=== PATIENT | female | born 1970 | race Caucasian/White ===

== ENCOUNTER 2018-07-13 07:32 | Emergency (ER) | payer MEDICARE, MEDICAID ==
[2018-07-13 07:54] VITALS: BP 132/82
[2018-07-13] MEDS ORDERED: Sodium Chloride 0.9% 10 ML Syringe FLUSH PRN ×2 (08:12→08:31)
[2018-07-13] MEDS ORDERED: Lactated Ringers 1,000 ML IV SCH (08:15)
--- NOTE | 2018-07-13 08:20 | EDM.PDOC ---
ED HPI GENERAL MEDICAL PROBLEM - General Chief Complaint: Gastrointestinal Problem Stated Complaint: PAIN IN LOWER ABDOMEN Time Seen by Provider: 07/13/18 08:07 Source of Information: Reports: Patient, Old Records, RN Notes Reviewed History Limitations: Reports: No Limitations - History of Present Illness INITIAL COMMENTS - FREE TEXT/NARRATIVE: 47-year-old female presents to the emergency department day complaint of abdominal pain, she states the abdominal pain is developed over the last 12 hours initially she felt it may been constipation had a normal bowel movement this morning pain still persists is predominantly in her left lower quadrant. She does have a history of 2 as well as cholecystectomy has had a colonoscopy about 10 years ago she states was unremarkable. She denies any fevers shortness of breath or chest pain is experiencing nausea no vomiting Left Lower Abdomen Pain Score (Numeric/FACES): 4 - Related Data Allergies Allergy/AdvReac Type Severity Reaction Status Date / Time No Known Allergies Allergy Verified 07/13/18 07:48 Home Meds: Home Meds Cholecalciferol (Vitamin D3) [Vitamin D3] 1,000 units PO DAILY 01/13/13 [History ] Montelukast [Singulair] 10 mg PO DAILY 01/13/13 [History] Lisinopril 40 mg PO DAILY 05/30/13 [History] Albuterol Sulfate [Proair Hfa] 2 inh INH QID PRN 07/03/13 [History] Albuterol [Proventil Neb Soln] 2 inh NEB Q2HR PRN 07/03/13 [History] Bupropion Hcl 150 mg PO BEDTIME 11/28/14 [History] Calcium 1 tab PO DAILY 11/28/14 [History] Cyclobenzaprine Hcl 10 mg PO ASDIRECTED PRN 11/28/14 [History] Ibuprofen 600 mg PO ASDIRECTED 11/28/14 [History] Low-Ogestrel 1 tab PO DAILY 11/28/14 [History] Multivitamin 1 tab PO DAILY 11/28/14 [History] Ranitidine Hcl 150 mg PO BID 11/28/14 [History] Amoxicillin/Potassium Clav [Augmentin 875-125 Tablet] 1 each PO BID #20 tablet 07/13/18 [Rx] Dextroamphetamine/Amphetamine [Adderall 10 mg Tablet] 10 mg PO BID 07/13/18 [ History] Docusate Sodium [Colace] 50 mg PO BID 07/13/18 [History] Fish Oil/[place]-3 Fatty Acids [Fish Oil 1,000 MG] 1 tab PO BID 07/13/18 [History] Hydrocodone/Acetaminophen [Hydrocodon-Acetaminophen 5-325] 1 each PO TID PRN # 10 tablet 07/13/18 [Rx] buPROPion HCl [Wellbutrin Xl] 150 mg PO DAILY 07/13/18 [History] Past Medical History HEENT History: Reports: Impaired Vision Cardiovascular History: Reports: High Cholesterol, Hypertension Respiratory History: Reports: Asthma, Sleep Apnea Other Respiratory History: has cpap Gastrointestinal History: Reports: Chronic Constipation [employer] OPERATOR History: Reports: Musculoskeletal History: Reports: Back Pain, Chronic Neurological History: Reports: Concussion, Head Trauma, Migraines Psychiatric History: Reports: Depression Endocrine/Metabolic History: Reports: Obesity/BMI 30+ Hematologic History: Reports: Blood Transfusion(s) - Infectious Disease History Infectious Disease History: Reports: Chicken Pox - Past Surgical History Head Surgeries/Procedures: Reports: None HEENT Surgical History: Reports: None Cardiovascular Surgical History: Reports: None Respiratory Surgical History: Reports: None GI Surgical History: Reports: Cholecystectomy, Colonoscopy Female Surgical History: Reports: Section Endocrine Surgical History: Reports: None Neurological Surgical History: Reports: None Musculoskeletal Surgical History: Reports: None Social & Family History - Tobacco Use Smoking Status *Q: Never Smoker Second Hand Smoke Exposure: No - Caffeine Use Caffeine Use: Reports: Coffee - Recreational Drug Use Recreational Drug Use: Yes Drug Use in Last 12 Months: Yes Recreational Drug Type: Reports: Marijuana/Hashish Recreational Drug Use Frequency: Rarely - Living Situation & Occupation Occupation: Employed ED ROS GENERAL - Review of Systems Review Of Systems: See Below Constitutional: Denies: Fever, Chills HEENT: Reports: No Symptoms Respiratory: Reports: No Symptoms Cardiovascular: Reports: No Symptoms GI/Abdominal: Reports: Abdominal Pain, Flatus, Nausea. Denies: Constipation, Diarrhea, Vomiting : Reports: No Symptoms Musculoskeletal: Reports: No Symptoms Skin: Reports: No Symptoms Neurological: Reports: No Symptoms ED EXAM, GI/ABD - Physical Exam Exam: See Below Exam Limited By: No Limitations General Appearance: Alert, WD/WN, No Apparent Distress Respiratory/Chest: No Respiratory Distress, Lungs Clear, Normal Breath Sounds, No Accessory Muscle Use Cardiovascular: Regular Rate, Rhythm, No Murmur GI/Abdominal Exam: Normal Bowel Sounds, Soft, No Distention, Tender (Left lower quadrant) Course - Vital Signs Last Recorded V/S: Last Vital Signs Temp 96.0 F 07/13/18 07:55 Pulse 80 07/13/18 07:55 Resp 16 07/13/18 07:55 BP 132/82 07/13/18 07:55 Pulse Ox 98 07/13/18 07:55 - Orders/Labs/Meds Orders: Active Orders 24 hr Category Date Time Status Peripheral IV Care [RC] . DIRECTED Care 07/13/18 08:12 Active Iopamidol [Isovue-300 (61%)] Med 07/13/18 08:45 Active 136 ml IV . DIRECTED Lactated Ringers [Ringers, Lactated] 1,000 ml Med 07/13/18 08:15 Active IV ASDIRECTED Sodium Chloride 0.9% [Saline Flush] Med 07/13/18 08:12 Active 10 ml FLUSH ASDIRECTED PRN Sodium Chloride 0.9% [Saline Flush] Med 07/13/18 08:31 Active 10 ml FLUSH ONETIME PRN Peripheral IV Insertion Adult [OM.PC] Urgent Oth 07/13/18 08:12 Ordered Medication Orders Lactated Ringer's (Ringers, Lactated) 1,000 mls @ 500 mls/hr IV ASDIRECTED [facility] Last Admin: 07/13/18 08:34 Dose: 500 mls/hr Iopamidol (Isovue-300 (61%)) 136 ml IV . DIRECTED [facility] Last Admin: 07/13/18 08:48 Dose: 136 ml Sodium Chloride (Saline Flush) 10 ml FLUSH ASDIRECTED PRN PRN Reason: Keep Vein Open Last Admin: 07/13/18 08:33 Dose: 10 ml Sodium Chloride (Saline Flush) 10 ml FLUSH ONETIME PRN PRN Reason: PER RADIOLOGY PROTOCOL Last Admin: 07/13/18 08:48 Dose: 10 ml Labs: Laboratory Tests 07/13/18 07/13/18 07/13/18 Range/Units 08:32 08:32 08:32 WBC 13.8 H (4.5-11.0) K/uL RBC 4.31 (3.30-5.50) M/uL Hgb 13.4 (12.0-15.0) g/dL Hct 40.5 (36.0-48.0) % MCV 94 (80-98) fL MCH 31 (27-31) pg MCHC 33 (32-36) % Plt Count 275 (150-400) K/uL Neut % (Auto) 89 H (36-66) % Lymph % (Auto) 7 L (24-44) % [place] % (Auto) 3 (2-6) % Eos % (Auto) 1 L (2-4) % Baso % (Auto) 0 (0-1) % Sodium (140-148) mmol/L Potassium (3.6-5.2) mmol/L Chloride (100-108) mmol/L Carbon Dioxide (21-32) mmol/L Anion Gap (5.0-14.0) mmol/L BUN (7-18) mg/dL Creatinine (0.6-1.0) mg/dL Est Cr Clr Drug Dosing mL/min Estimated GFR (MDRD) (>60) Glucose (74-106) mg/dL Lactic Acid (0.4-2.0) mmol/L Calcium (8.5-10.1) mg/dL Total Bilirubin (0.2-1.0) mg/dL AST (15-37) U/L ALT (12-78) U/L Alkaline Phosphatase (46-116) U/L Total Protein (6.4-8.2) g/dL Albumin (3.4-5.0) g/dL Globulin (2.3-3.5) g/dL Albumin/Globulin Ratio (1.2-2.2) Lipase (73-393) U/L Urine Color Yellow Urine Appearance Clear Urine pH 5.0 (4.5-8.0) Ur Specific [place] 1.015 (1.008-1.030) Urine Protein Negative (NEGATIVE) mg/dL Urine Glucose (UA) Negative (NEGATIVE) mg/dL Urine Ketones 15 H (NEGATIVE) mg/dL Urine Occult Blood Large (NEGATIVE) Urine Nitrite Negative (NEGATIVE) Urine Bilirubin Negative (NEGATIVE) Urine Urobilinogen Normal (NORMAL) mg/dL Ur Leukocyte Esterase Negative (NEGATIVE) Urine RBC 0-5 (0-5) Urine WBC Not seen (0-5) Ur Epithelial Cells Few Amorphous Sediment Not seen Urine Bacteria Moderate Urine Mucus Not seen Urine HCG, Qual Negative 07/13/18 07/13/18 Range/Units 08:32 08:32 WBC (4.5-11.0) K/uL RBC (3.30-5.50) M/uL Hgb (12.0-15.0) g/dL Hct (36.0-48.0) % MCV (80-98) fL MCH (27-31) pg MCHC (32-36) % Plt Count (150-400) K/uL Neut % (Auto) (36-66) % Lymph % (Auto) (24-44) % [place] % (Auto) (2-6) % Eos % (Auto) (2-4) % Baso % (Auto) (0-1) % Sodium 137 L (140-148) mmol/L Potassium 3.8 (3.6-5.2) mmol/L Chloride 102 (100-108) mmol/L Carbon Dioxide 25 (21-32) mmol/L Anion Gap 13.8 (5.0-14.0) mmol/L BUN 12 (7-18) mg/dL Creatinine 0.8 (0.6-1.0) mg/dL Est Cr Clr Drug Dosing 81.38 mL/min Estimated GFR (MDRD) > 60 (>60) Glucose 101 (74-106) mg/dL Lactic Acid 0.9 (0.4-2.0) mmol/L Calcium 8.8 (8.5-10.1) mg/dL Total Bilirubin 1.0 D (0.2-1.0) mg/dL AST 15 (15-37) U/L ALT 34 (12-78) U/L Alkaline Phosphatase 52 (46-116) U/L Total Protein 7.2 (6.4-8.2) g/dL Albumin 3.6 (3.4-5.0) g/dL Globulin 3.6 H (2.3-3.5) g/dL Albumin/Globulin Ratio 1.0 L (1.2-2.2) Lipase 134 (73-393) U/L Urine Color Urine Appearance Urine pH (4.5-8.0) Ur Specific [place] (1.008-1.030) Urine Protein (NEGATIVE) mg/dL Urine Glucose (UA) (NEGATIVE) mg/dL Urine Ketones (NEGATIVE) mg/dL Urine Occult Blood (NEGATIVE) Urine Nitrite (NEGATIVE) Urine Bilirubin (NEGATIVE) Urine Urobilinogen (NORMAL) mg/dL Ur Leukocyte Esterase (NEGATIVE) Urine RBC (0-5) Urine WBC (0-5) Ur Epithelial Cells Amorphous Sediment Urine Bacteria Urine Mucus Urine HCG, Qual Meds: Medications Generic Name Dose Route Start Last Admin Trade Name Leydi PRN Reason Stop Dose Admin Lactated Ringer's 1,000 mls @ 500 mls/hr 07/13/18 08:15 07/13/18 08:34 Ringers, Lactated IV 500 mls/hr ASDIRECTED SORAIDA Administration Iopamidol 136 ml 07/13/18 08:45 07/13/18 08:48 Isovue-300 (61%) IV 136 ml . DIRECTED SORAIDA Administration Sodium Chloride 10 ml 07/13/18 08:12 07/13/18 08:33 Saline Flush FLUSH 10 ml ASDIRECTED PRN Administration Keep Vein Open Sodium Chloride 10 ml 07/13/18 08:31 07/13/18 08:48 Saline Flush FLUSH 10 ml ONETIME PRN Administration PER RADIOLOGY PROTOCOL Discontinued Medications Generic Name Dose Route Start Last Admin Trade Name Leydi PRN Reason Stop Dose Admin Sodium Chloride 81 mls @ 3 mls/sec 07/13/18 08:31 07/13/18 08:47 Normal Saline IV 07/13/18 08:32 3.5 mls/sec ONETIME ONE Administration Ondansetron HCl 4 mg 07/13/18 09:00 07/13/18 09:04 Zofran IVPUSH 07/13/18 09:01 4 mg ONETIME ONE Administration Departure - Departure Time of Disposition: 09:40 Disposition: Home, Self-Care 01 Condition: Fair Clinical Impression: Sigmoid diverticulitis - Discharge Information Prescriptions: Amoxicillin/Potassium Clav [Augmentin 875-125 Tablet] 1 each PO BID #20 tablet Hydrocodone/Acetaminophen [Hydrocodon-Acetaminophen 5-325] 1 each PO TID PRN # 10 tablet PRN Reason: Pain Referrals: PCP,None [Primary Care Provider] - Forms: ED Department Discharge Additional Instructions: Take full course of antibiotics, use ibuprofen for baseline pain control use hydrocodone for breakthrough pain, please follow-up with your primary care provider in the next 3-5 days for reevaluation also discussed the possibility of colonoscopy in the future. Your medications have been faxed to [facility] - My Orders Last 24 Hours: My Active Orders 07/13/18 08:12 Peripheral IV Care [RC] . DIRECTED Sodium Chloride 0.9% [Saline Flush] 10 ml FLUSH ASDIRECTED PRN Peripheral IV Insertion Adult [OM.PC] Urgent 07/13/18 08:15 Lactated Ringers [Ringers, Lactated] 1,000 ml IV ASDIRECTED 07/13/18 08:31 Sodium Chloride 0.9% [Saline Flush] 10 ml FLUSH ONETIME PRN 07/13/18 08:45 Iopamidol [Isovue-300 (61%)] 136 ml IV . DIRECTED - Assessment/Plan Last 24 Hours: My Active Orders 07/13/18 08:12 Peripheral IV Care [RC] . DIRECTED Sodium Chloride 0.9% [Saline Flush] 10 ml FLUSH ASDIRECTED PRN Peripheral IV Insertion Adult [OM.PC] Urgent 07/13/18 08:15 Lactated Ringers [Ringers, Lactated] 1,000 ml IV ASDIRECTED 07/13/18 08:31 Sodium Chloride 0.9% [Saline Flush] 10 ml FLUSH ONETIME PRN 07/13/18 08:45 Iopamidol [Isovue-300 (61%)] 136 ml IV . DIRECTED Plan: Assessment Acuity = acute Site and laterality = diverticulitis sigmoid Etiology = unknown etiology Manifestations = abdominal pain, nausea Location of injury = Home Lab values = WBC elevated 13.8 consistent leukocytosis, CT scan consistent with sigmoid diverticulitis Plan [I did review lab work and CT scan results with her prescription sent to [facility] for Augmentin 875 by mouth twice a day 10 days in combination with hydrocodone 5/325 one tab by mouth 3 times a day when necessary total #10 she' ll follow-up with her primary care in the next 3-5 days for reevaluation also discussed with her the possibility of colonoscopy in the future This note was dictated using [employer] voice recognition software please call with any questions on syntax or grammar.
[2018-07-13] MEDS ORDERED: Iopamidol 612 MG/ML 150 ML Bottle IV SCH (08:45)
[2018-07-13] MEDS ORDERED: Ondansetron 4 MG/2 ML SDV IVPUSH ONE (09:00)
--- NOTE | 2018-07-13 09:15 | CRLCT ---
INDICATION: 47 year-old female. Left lower quadrant abdominal pelvic pain. TECHNIQUE: Contrast-enhanced abdominal pelvic CT. 136 cc nonionic Isovue-300 administered. COMPARISON: None. FINDINGS: There are CT changes compatible with sigmoid diverticulitis within the left lower quadrant. Specifically the proximal and mid sigmoid colon appear to be thick-walled and edematous with pericolonic fat stranding and a few scattered diverticula particularly within the left lower quadrant, image 105 series 2. Minimal free pelvic fluid which may be reactive in nature. No abscess formation, free air, or bowel obstruction. Clear included lung bases. Tiny esophageal hiatal hernia. The liver is negative for masses or biliary ductal dilatation. Surgically absent gallbladder. No splenomegaly. Normal-appearing pancreas, adrenal glands, and kidneys. Normal caliber abdominal aorta and iliac arteries. Normal inferior vena cava. Normal appendix. The uterus, urinary bladder, and both ovaries are within normal limits. Degenerative disc disease at L4 and L5. IMPRESSION: 1. Sigmoid diverticulitis. No abscess formation or bowel obstruction. Minimal free pelvic fluid. 2. Normal appendix. 3. Surgically absent gallbladder. Please note that all CT scans at this facility use dose modulation, iterative reconstruction, and/or weight-based dosing when appropriate to reduce radiation dose to as low as reasonably achievable. Dictated by Arley Omer MD @ Jul 13 2018 9:09AM Signed by Dr. Arley Omer @ Jul 13 2018 9:13AM
== END 2018-07-13 09:49 | disposition home or self-care (01) ==
LOC: JP.ED 07:32
DX: K57.32 Diverticulitis of large intestine without perforation or abscess without bleeding (principal); E78.00 Pure hypercholesterolemia, unspecified; I10 Essential (primary) hypertension; J45.909 Unspecified asthma, uncomplicated; F32.9 Major depressive disorder, single episode, unspecified; Z79.899 Other long term (current) drug therapy
CPT/HCPCS: 36415; 74177; 80053; 81001; 81025; 83605; 83690; 85025; 96361; 96374; 99284; J2405; J7030; J7120

== ENCOUNTER → 2018-09-09 | Day surgery (SDC) | payer MEDICARE, MEDICAID ==
[~2018-09-09] MED LIST: Lactated Ringers 1,000 ML IV SCH; Midazolam 1 MG/ML 2 ML SDV ONE; Propofol 200 MG/20 ML SDV ONE; fentaNYL 100 MCG/2 ML SDV ONE
[2018-09-09 10:06] VITALS: BP 124/84
--- NOTE | 2018-09-12 14:02 | OR ---
DATE OF PROCEDURE: 09/09/2018 PREOPERATIVE DIAGNOSIS: Resolved diverticulitis. POSTOPERATIVE DIAGNOSES: Diverticulosis, resolved diverticulitis. PROCEDURE: Colonoscopy to the cecum. SURGEON: Cordell Tay MD ANESTHESIA: IV anesthesia with monitored anesthesia care. INDICATION: This 47-year-old white female is referred for a colonoscopy because of a recent history of diverticulitis. This was back in July, it is resolved. I counseled her for the procedure, including risks and alternatives, and she gave her informed consent to proceed. DESCRIPTION OF PROCEDURE: The patient was placed in the left lateral decubitus position. IV anesthesia was administered by the Anesthesia Service. Time-out was held. A rectal exam was performed, which was unremarkable. A flexible video Olympus colonoscope was introduced through her anus, up her rectum, and out her colon all the way to the cecum. En route, we saw multiple left-sided diverticula, they were all small. Once the cecum was reached, the scope was slowly withdrawn, examining the mucosa throughout. No additional mucosal abnormalities were noted. The scope was retroflexed in the rectum with the distal rectum appearing unremarkable. The scope was straightened and removed. She tolerated the procedure well. Cordell Tay MD /[id number]
== END ==
LOC: JP.SDS 06:55
PROVIDERS: ATTEND Surgery
DX: K57.30 Diverticulosis of large intestine without perforation or abscess without bleeding (principal); I10 Essential (primary) hypertension; E11.9 Type 2 diabetes mellitus without complications; F32.9 Major depressive disorder, single episode, unspecified; J45.909 Unspecified asthma, uncomplicated; G47.33 Obstructive sleep apnea (adult) (pediatric); Z87.19 Personal history of other diseases of the digestive system
CPT/HCPCS: 45378; J2250; J2704; J3010; J7120

== ENCOUNTER 2018-10-03 18:02 | Emergency (ER) | payer MEDICARE, MEDICAID ==
[2018-10-03 18:17] VITALS: BP 140/83
[2018-10-03] MEDS ORDERED: methylPREDNISolone Sodium Succinate 40 MG/1 ML SDV IVPUSH ONE (18:30)
[2018-10-03] MEDS ORDERED: Albuterol/Ipratropium 3.0-0.5 MG/3 ML Neb Soln NEB ONE (18:30)
[2018-10-03] MEDS ORDERED: Sodium Chloride 0.9% 10 ML Syringe FLUSH PRN (18:30)
--- NOTE | 2018-10-03 18:33 | EDM.PDOC ---
ED HPI GENERAL MEDICAL PROBLEM - General Chief Complaint: Respiratory Problem Stated Complaint: TROUBLE BREATHING Time Seen by Provider: 10/03/18 18:25 Source of Information: Reports: Patient, RN Notes Reviewed History Limitations: Reports: No Limitations - History of Present Illness INITIAL COMMENTS - FREE TEXT/NARRATIVE: 47-year-old female presents emergency department today complaint of shortness of breath. She has a known history of asthma states been having difficulty the spring using her albuterol inhaler almost daily because of shortness of breath. She did develop a cold-like symptoms 3-4 days ago that has progressively gotten worse and now it moved into her chest. She does not produce any sputum has not had any fevers is wheezing and the albuterol is not helping anymore - Related Data Allergies Allergy/AdvReac Type Severity Reaction Status Date / Time No Known Allergies Allergy Verified 10/03/18 18:36 Home Meds: Home Meds Cholecalciferol (Vitamin D3) [Vitamin D3] 2,000 units PO BID 01/13/13 [History] Lisinopril 40 mg PO DAILY 05/30/13 [History] Albuterol Sulfate [Proair Hfa] 2 puff INH QID PRN 07/03/13 [History] Albuterol [Proventil Neb Soln] 3 ml NEB TID 07/03/13 [History] Dextroamphetamine/Amphetamine [Adderall 10 mg Tablet] 10 mg PO BID 07/13/18 [ History] Docusate Sodium [Colace] 100 mg PO BID 07/13/18 [History] Fish Oil/[place]-3 Fatty Acids [Fish Oil 1,000 MG] 1 tab PO BID 07/13/18 [History] buPROPion HCl [Wellbutrin Xl] 150 mg PO DAILY 07/13/18 [History] Aspirin [Low Dose Aspirin EC] 81 mg PO DAILY 09/07/18 [History] Calcium Carbonate [Oyster Shell Calcium] 500 mg PO BID 09/07/18 [History] Cetirizine HCl 20 mg PO DAILY 09/07/18 [History] Cyclobenzaprine HCl 10 mg PO BEDTIME PRN 09/07/18 [History] Fluticasone Propionate [Flonase] 2 spray ASHVIN DAILY 09/07/18 [History] Lidocaine 5% [Lidoderm 5%] 1 patch TOP Q24H 09/07/18 [History] Multivitamin [Multiple Vitamins] 1 tab PO DAILY 09/07/18 [History] Norgestrel-Ethinyl Estradiol [Xis-[id number]-64 Tablet] 1 tab PO DAILY 09/07/18 [ History] Ranitidine HCl [Zantac] 150 mg PO BID 09/07/18 [History] Vitamin B Complex 1 tab PO DAILY 09/07/18 [History] Past Medical History HEENT History: Reports: Allergic Rhinitis, Impaired Vision Cardiovascular History: Reports: High Cholesterol, Hypertension Respiratory History: Reports: Asthma, Sleep Apnea Other Respiratory History: has cpap Gastrointestinal History: Reports: Cholelithiasis, Chronic Constipation, Diverticulosis, GERD [employer]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: Musculoskeletal History: Reports: Back Pain, Chronic Neurological History: Reports: Concussion, Head Trauma, Migraines Psychiatric History: Reports: Anxiety, Depression Endocrine/Metabolic History: Reports: Obesity/BMI 30+ Hematologic History: Reports: Blood Transfusion(s) - Infectious Disease History Infectious Disease History: Reports: Chicken Pox - Past Surgical History Head Surgeries/Procedures: Reports: None HEENT Surgical History: Reports: None Cardiovascular Surgical History: Reports: None Respiratory Surgical History: Reports: None GI Surgical History: Reports: Cholecystectomy, Colonoscopy Female Surgical History: Reports: Section Endocrine Surgical History: Reports: None Neurological Surgical History: Reports: None Musculoskeletal Surgical History: Reports: None Social & Family History - Tobacco Use Smoking Status *Q: Never Smoker - Caffeine Use Caffeine Use: Reports: Coffee - Living Situation & Occupation Occupation: Employed ED ROS GENERAL - Review of Systems Review Of Systems: See Below Constitutional: Reports: No Symptoms HEENT: Reports: No Symptoms Respiratory: Reports: Shortness of Breath, Wheezing, Cough. Denies: Sputum Cardiovascular: Reports: Dyspnea on Exertion GI/Abdominal: Reports: No Symptoms : Reports: No Symptoms ED EXAM, GENERAL - Physical Exam Exam: See Below Exam Limited By: No Limitations General Appearance: Alert, WD/WN, No Apparent Distress Respiratory/Chest: No Respiratory Distress, No Accessory Muscle Use, Decreased Breath Sounds, Wheezing Cardiovascular: Regular Rate, Rhythm, No Murmur Course - Vital Signs Last Recorded V/S: Last Vital Signs Temp 96.5 F 10/03/18 18:21 Pulse 99 10/03/18 18:21 Resp 19 10/03/18 18:21 BP 140/83 10/03/18 18:21 Pulse Ox 90 L 10/03/18 18:21 - Orders/Labs/Meds Orders: Active Orders 24 hr Category Date Time Status Peripheral IV Care [RC] . DIRECTED Care 10/03/18 18:30 Active RT Aerosol Therapy [RC] ASDIRECTED Care 10/03/18 18:30 Active Sodium Chloride 0.9% [Saline Flush] Med 10/03/18 18:30 Active 10 ml FLUSH ASDIRECTED PRN Peripheral IV Insertion Adult [OM.PC] Urgent Oth 10/03/18 18:30 Ordered Medication Orders Sodium Chloride (Saline Flush) 10 ml FLUSH ASDIRECTED PRN PRN Reason: Keep Vein Open Last Admin: 10/03/18 18:40 Dose: 10 ml Meds: Medications Generic Name Dose Route Start Last Admin Trade Name Freq PRN Reason Stop Dose Admin Sodium Chloride 10 ml 10/03/18 18:30 10/03/18 18:40 Saline Flush FLUSH 10 ml ASDIRECTED PRN Administration Keep Vein Open Discontinued Medications Generic Name Dose Route Start Last Admin Trade Name Freq PRN Reason Stop Dose Admin Albuterol/Ipratropium 3 ml 10/03/18 18:30 10/03/18 18:40 Duoneb 3.0-0.5 Mg/3 Ml NEB 10/03/18 18:31 3 ml ONETIME ONE Administration Methylprednisolone Sodium Succinate 40 mg 10/03/18 18:30 10/03/18 18:39 Solu-Medrol IVPUSH 10/03/18 18:31 40 mg ONETIME ONE Administration Departure - Departure Time of Disposition: 19:56 Disposition: Home, Self-Care 01 Condition: Fair Clinical Impression: Bronchitis - Discharge Information Referrals: Rogelio Martins NP [Primary Care Provider] - Forms: ED Department Discharge Additional Instructions: Take full course of antibiotics, take full course of steroids, Please followup with your primary care provider in 3-5 days if not better, please call return to the emergency department with worsening of symptoms. - My Orders Last 24 Hours: My Active Orders 10/03/18 18:30 Peripheral IV Care [RC] . DIRECTED RT Aerosol Therapy [RC] ASDIRECTED Sodium Chloride 0.9% [Saline Flush] 10 ml FLUSH ASDIRECTED PRN Peripheral IV Insertion Adult [OM.PC] Urgent - Assessment/Plan Last 24 Hours: My Active Orders 10/03/18 18:30 Peripheral IV Care [RC] . DIRECTED RT Aerosol Therapy [RC] ASDIRECTED Sodium Chloride 0.9% [Saline Flush] 10 ml FLUSH ASDIRECTED PRN Peripheral IV Insertion Adult [OM.PC] Urgent Plan: Assessment Acuity = acute Site and laterality = bronchitis, again the patient with known history of moderate persistent asthma Etiology = probable bacterial cause] Manifestations = wheezing, dyspnea Location of injury = Home Lab values = chest x-ray shows no acute process Plan She had good relief with DuoNeb provided in the emergency department, prescription written for azithromycin 5 day course as well as prednisone 20 mg once day for 5 days she received 40 mg of Solu-Medrol in the emergency department follow-up primary care 3-5 days if no improvement This note was dictated using [employer] voice recognition software please call with any questions on syntax or grammar.
--- NOTE | 2018-10-03 19:51 | CRLCR ---
HISTORY Shortness of breath. TECHNIQUE Two-view chest. COMPARISON None. FINDINGS No airspace consolidation. No pleural effusion or pneumothorax. Pulmonary vasculature and cardiomediastinal silhouette are normal. Degenerative changes of the spine. Surgical clips in the upper abdomen. IMPRESSION No cardiopulmonary abnormality. Dictated by: Brandyn Barber MD @ 10/03/2018 19:49:53 (Electronically Signed)
== END 2018-10-03 20:07 | disposition home or self-care (01) ==
LOC: JP.ED 18:02
DX: J20.9 Acute bronchitis, unspecified (principal); I10 Essential (primary) hypertension; E66.9 Obesity, unspecified; F41.9 Anxiety disorder, unspecified; F32.9 Major depressive disorder, single episode, unspecified; Z90.49 Acquired absence of other specified parts of digestive tract; Z79.82 Long term (current) use of aspirin; Z79.899 Other long term (current) drug therapy
CPT/HCPCS: 71046; 94640; 96374; 99284; J2920; J7620-GY

== ENCOUNTER 2019-09-01 07:53 | Emergency (ER) | payer MEDICARE, MEDICAID ==
[2019-09-01 08:05] VITALS: BP 131/80; PULSE 80
[2019-09-01] MEDS ORDERED: diphenhydrAMINE 25 MG Cap PO ONE (08:21)
[2019-09-01] MEDS ORDERED: predniSONE 20 MG Tab PO ONE (08:22)
[2019-09-01] MEDS ORDERED: Famotidine 20 MG Tab PO ONE (08:22)
--- NOTE | 2019-09-01 08:28 | EDM.PDOC ---
ED HPI GENERAL MEDICAL PROBLEM - General Chief Complaint: ENT Problem Stated Complaint: LEFT SIDE TONGUE SWELLING Time Seen by Provider: 09/01/19 08:10 Source of Information: Reports: Patient, Old Records, RN History Limitations: Reports: No Limitations - History of Present Illness INITIAL COMMENTS - FREE TEXT/NARRATIVE: 48 yo female awoke today with the L side of her tongue swollen. Sx's have worsened since then. Her speech is affected, but not her breathing. No hx of the same. Is on lisinopril and has taken this for about 10 yrs. Denies any rash or itching. Took cetirizine 10 mg orally at home for her sx's. Onset: Today Onset Date: 09/01/19 Duration: Hour(s):, Getting Worse Location: Reports: Face (L side of her tongue) Quality: Reports: Other (no pain) Severity: Moderate Improves with: Reports: None Worsens with: Reports: Other (time) Context: Reports: Other (See HPI) Associated Symptoms: Reports: No Other Symptoms Treatments SYSTEMS MANAGEMENT CONSULTANT: Reports: Other (see below) (Cetirizine 10 mg po) - Related Data Allergies Allergy/AdvReac Type Severity Reaction Status Date / Time No Known Allergies Allergy Verified 09/01/19 08:05 Home Meds: Home Meds Cholecalciferol (Vitamin D3) [Vitamin D3] 2,000 units PO BID 01/13/13 [History] Lisinopril 40 mg PO DAILY 05/30/13 [History] Albuterol Sulfate [Proair Hfa] 2 puff INH QID PRN 07/03/13 [History] Albuterol [Proventil Neb Soln] 3 ml NEB TID 07/03/13 [History] Dextroamphetamine/Amphetamine [Adderall 10 mg Tablet] 10 mg PO BID 07/13/18 [ History] Docusate Sodium [Colace] 100 mg PO BID 07/13/18 [History] Fish Oil/[place]-3 Fatty Acids [Fish Oil 1,000 MG] 1 tab PO BID 07/13/18 [History] buPROPion HCL [Wellbutrin Xl] 150 mg PO DAILY 07/13/18 [History] Aspirin [Low Dose Aspirin EC] 81 mg PO DAILY 09/07/18 [History] Calcium Carbonate [Oyster Shell Calcium] 500 mg PO BID 09/07/18 [History] Cetirizine HCl 20 mg PO DAILY 09/07/18 [History] Cyclobenzaprine HCl 10 mg PO BEDTIME PRN 09/07/18 [History] Fluticasone Propionate [Flonase] 2 spray ASHVIN DAILY 09/07/18 [History] Lidocaine 5% [Lidoderm 5%] 1 patch TOP Q24H 09/07/18 [History] Multivitamin [Multiple Vitamins] 1 tab PO DAILY 09/07/18 [History] Norgestrel-Ethinyl Estradiol [Whf-Vamurvfh-47 Tablet] 1 tab PO DAILY 09/07/18 [ History] Vitamin B Complex 1 tab PO DAILY 09/07/18 [History] raNITIdine HCl [Zantac] 150 mg PO BID 09/07/18 [History] Budesonide [Pulmicort Flexhaler] 1 ampule INH 09/01/19 [History] nitrofurantoin macrocrystaL [Macrodantin] 1 tab PO BID 09/01/19 [History] Past Medical History HEENT History: Reports: Allergic Rhinitis, Impaired Vision Cardiovascular History: Reports: High Cholesterol, Hypertension Respiratory History: Reports: Asthma, Sleep Apnea Other Respiratory History: has cpap Gastrointestinal History: Reports: Cholelithiasis, Chronic Constipation, Diverticulosis, GERD Genitourinary History: Reports: None CLERICAL SUPPORT SPECIALIST History: Reports: Musculoskeletal History: Reports: Back Pain, Chronic Neurological History: Reports: Concussion, Head Trauma, Migraines Psychiatric History: Reports: Anxiety, Depression Endocrine/Metabolic History: Reports: Obesity/BMI 30+ Hematologic History: Reports: Blood Transfusion(s) - Infectious Disease History Infectious Disease History: Reports: Chicken Pox - Past Surgical History Head Surgeries/Procedures: Reports: None HEENT Surgical History: Reports: None Cardiovascular Surgical History: Reports: None Respiratory Surgical History: Reports: None GI Surgical History: Reports: Cholecystectomy, Colonoscopy Female Surgical History: Reports: Section Endocrine Surgical History: Reports: None Neurological Surgical History: Reports: None Musculoskeletal Surgical History: Reports: None Social & Family History - Tobacco Use Smoking Status *Q: Never Smoker - Caffeine Use Caffeine Use: Reports: Coffee - Living Situation & Occupation Occupation: Employed ED ROS ENT - Review of Systems Review Of Systems: See Below Constitutional: Reports: No Symptoms HEENT: Reports: Other (L side of tongue swelling.) Respiratory: Reports: No Symptoms Cardiovascular: Reports: No Symptoms GI/Abdominal: Reports: No Symptoms Skin: Reports: No Symptoms ED EXAM, ENT - Physical Exam Exam: See Below Exam Limited By: No Limitations General Appearance: Alert, WD/WN, No Apparent Distress Eye Exam: Bilateral Eye: Normal Inspection Ears: Normal External Exam, Normal Canal, Hearing Grossly Normal, Normal TMs Nose: Normal Inspection, No Blood Mouth/Throat: Normal Lips, Normal Oropharynx, Normal Teeth, Tongue Swelling (L half) Head: Atraumatic, Normocephalic Neck: Normal Inspection, Supple, Non-Tender, Full Range of Motion, Other (Can feel her swollen tongue on the left side of her neck.) Respiratory/Chest: No Respiratory Distress, Lungs Clear, Normal Breath Sounds, No Accessory Muscle Use Cardiovascular: Regular Rate, Rhythm, No Edema Extremities: Normal Inspection Neurological: Alert, Oriented, CN II-XII Intact, Normal Cognition, No Motor/ Sensory Deficits Psychiatric: Normal Affect, Normal Mood Skin: Warm, Dry, Intact, Normal Color, No Rash Course - Vital Signs Last Recorded V/S: Last Vital Signs Temp 36.2 C 09/01/19 08:15 Pulse 80 09/01/19 08:15 Resp 16 09/01/19 08:15 BP 131/80 09/01/19 08:15 Pulse Ox 99 09/01/19 08:15 - Orders/Labs/Meds Orders: Active Orders 24 hr Category Date Time Status Sodium Chloride 0.9% [Saline Flush] Med 09/01/19 08:55 Active 10 ml FLUSH ASDIRECTED PRN Saline Lock Insert [OM.PC] Routine Oth 09/01/19 08:55 Ordered Medication Orders Sodium Chloride (Saline Flush) 10 ml FLUSH ASDIRECTED PRN PRN Reason: Keep Vein Open Last Admin: 09/01/19 09:26 Dose: 10 ml Meds: Medications Generic Name Dose Route Start Last Admin Trade Name Freq PRN Reason Stop Dose Admin Sodium Chloride 10 ml 09/01/19 08:55 09/01/19 09:26 Saline Flush FLUSH 10 ml ASDIRECTED PRN Administration Keep Vein Open Discontinued Medications Generic Name Dose Route Start Last Admin Trade Name Freq PRN Reason Stop Dose Admin Diphenhydramine HCl 75 mg 09/01/19 08:21 09/01/19 08:28 Benadryl PO 09/01/19 08:22 75 mg ONETIME ONE Administration Diphenhydramine HCl 25 mg 09/01/19 09:14 09/01/19 09:25 Benadryl IVPUSH 09/01/19 09:15 25 mg ONETIME ONE Administration Epinephrine HCl 0.5 mg 09/01/19 08:55 09/01/19 09:02 Adrenalin SUBCUT 09/01/19 08:56 0.5 mg ONETIME ONE Administration Famotidine 40 mg 09/01/19 08:22 09/01/19 08:29 Pepcid PO 09/01/19 08:23 40 mg ONETIME ONE Administration Famotidine Confirm 09/01/19 08:32 Pepcid Administered 09/01/19 08:33 Dose 20 mg .ROUTE .STK-MED ONE Methylprednisolone Sodium Succinate 40 mg 09/01/19 09:14 09/01/19 09:25 Solu-Medrol IVPUSH 09/01/19 09:15 40 mg ONETIME ONE Administration Prednisone 60 mg 09/01/19 08:22 09/01/19 08:28 Prednisone PO 09/01/19 08:23 60 mg ONETIME ONE Administration - Re-Assessments/Exams Free Text/Narrative Re-Assessment/Exam: 09/01/19 09:15 After our initial oral medications she continue to get worse. Epi given subcut and now she thinks things have stabilized. Will now give an additional dose of IV diphenhydramine and Solumedrol. Free Text/Narrative Re-Assessment/Exam: 09/01/19 09:29 Says it feels like it is a little easier to swallow at this time. Free Text/Narrative Re-Assessment/Exam: 09/01/19 11:14 Feels improved enough to try going home now. Departure - Departure Time of Disposition: 11:25 Disposition: Home, Self-Care 01 Condition: Fair Clinical Impression: Allergic angioedema Qualifiers: Encounter type: initial encounter Qualified Code(s): T78.3XXA - Angioneurotic edema, initial encounter - Discharge Information *PRESCRIPTION DRUG MONITORING PROGRAM REVIEWED*: No *COPY OF PRESCRIPTION DRUG MONITORING REPORT IN PATIENT MONO: No Instructions: Angioedema, [id number] Referrals: Rogelio Martins, ADULT FAMILY HOME PROGRAM MANAGER [Primary Care Provider] - Forms: ED Department Discharge Additional Instructions: Discontinue use of lisinopril. Take diphenhydramine 50-75 mg orally every 4-6 hrs for continued tongue swelling. Take famotidine 40mg daily until your tongue swelling is completely resolved. Take Micardis [address] of your lisinopril. Return if you feel that your symptoms are worsening. Recheck with your provider within the week for a BP recheck on this new medication Sepsis Event Note - Evaluation Sepsis Screening Result: No Definite Risk - Focused Exam Vital Signs: Vital Signs Temp Pulse Resp BP Pulse Ox 09/01/19 08:15 36.2 C 80 16 131/80 99 09/01/19 08:04 36.2 C 80 16 131/80 99 Date Exam was Performed: 09/01/19 Time Exam was Performed: 11:14 - My Orders Last 24 Hours: My Active Orders 09/01/19 08:55 Sodium Chloride 0.9% [Saline Flush] 10 ml FLUSH ASDIRECTED PRN Saline Lock Insert [OM.PC] Routine - Assessment/Plan Last 24 Hours: My Active Orders 09/01/19 08:55 Sodium Chloride 0.9% [Saline Flush] 10 ml FLUSH ASDIRECTED PRN Saline Lock Insert [OM.PC] Routine
[2019-09-01] MEDS ORDERED: Famotidine 20 MG Tab ONE (08:32)
[2019-09-01] MEDS ORDERED: EPINEPHrine 1 MG/ML SDV SUBCUT ONE (08:55)
[2019-09-01] MEDS ORDERED: Sodium Chloride 0.9% 10 ML Syringe FLUSH PRN (08:55)
[2019-09-01] MEDS ORDERED: methylPREDNISolone Sodium Succinate 40 MG/1 ML SDV IVPUSH ONE (09:14)
[2019-09-01] MEDS ORDERED: diphenhydrAMINE 50 MG/ML SDV IVPUSH ONE (09:14)
== END 2019-09-01 11:33 | disposition home or self-care (01) ==
LOC: JP.ED 07:53
DX: T78.3XXA Angioneurotic edema, initial encounter (principal); I10 Essential (primary) hypertension; J45.909 Unspecified asthma, uncomplicated; K21.9 Gastro-esophageal reflux disease without esophagitis; F41.9 Anxiety disorder, unspecified; F32.9 Major depressive disorder, single episode, unspecified; E66.9 Obesity, unspecified; Z68.32 Body mass index [BMI] 32.0-32.9, adult; Z79.82 Long term (current) use of aspirin; Z79.899 Other long term (current) drug therapy
CPT/HCPCS: 96372; 96374; 96375; 99283; A9270; J0171; J1200; J2920; J7512; 99285

== ENCOUNTER 2021-04-14 07:42 | Emergency (ER) | payer MEDICARE, MEDICAID ==
[2021-04-14 08:06] VITALS: BP 134/60; PULSE 61
--- NOTE | 2021-04-14 08:41 | EDM.PDOC ---
ED HPI GENERAL MEDICAL PROBLEM - General Chief Complaint: Neurological Problem Stated Complaint: HANDS NUMB, FEEL OFF Time Seen by Provider: 04/14/21 08:20 Source of Information: Reports: Patient History Limitations: Reports: No Limitations - History of Present Illness INITIAL COMMENTS - FREE TEXT/NARRATIVE: Arrives with generalized malaise, recurring dizziness, feels off but no real specific symptoms. No fevers or chills, nausea but no vomiting, no diarrhea or shortness of breath. She is vaccinated for Covid. She had a left hip surgery a few weeks ago, is increasing her activity but today felt like her hands were numb, she was dizzy, and just started getting worried so came in to be evaluated. She does have a history of anxiety about her health. No asymmetric neurologic deficits or complaints. She has a subtle left chest discomfort which radiates through to the shoulder on the left side. Onset: Unknown/Unsure (Symptoms have been waxing and waning for weeks, seemed worse today) Associated Symptoms: Reports: Malaise, Other (Nausea, weakness, dizziness). Denies: Fever/Chills - Related Data Allergies Allergy/AdvReac Type Severity Reaction Status Date / Time No Known Allergies Allergy Verified 09/01/19 08:05 Home Meds: Home Meds Cholecalciferol (Vitamin D3) [Vitamin D3] 2,000 units PO BID 01/13/13 [History] Lisinopril 40 mg PO DAILY 05/30/13 [History] Albuterol Sulfate [Proair Hfa] 2 puff INH QID PRN 07/03/13 [History] Albuterol [Proventil Neb Soln] 3 ml NEB TID 07/03/13 [History] Dextroamphetamine/Amphetamine [Adderall 10 mg Tablet] 10 mg PO BID 07/13/18 [History] Docusate Sodium [Colace] 100 mg PO BID 07/13/18 [History] Fish Oil/[place]-3 Fatty Acids [Fish Oil 1,000 MG] 1 tab PO BID 07/13/18 [History] buPROPion HCL [Wellbutrin Xl] 150 mg PO DAILY 07/13/18 [History] Aspirin [Low Dose Aspirin EC] 81 mg PO DAILY 09/07/18 [History] Calcium Carbonate [Oyster Shell Calcium] 500 mg PO BID 09/07/18 [History] Cetirizine HCl 20 mg PO DAILY 09/07/18 [History] Cyclobenzaprine HCl 10 mg PO BEDTIME PRN 09/07/18 [History] Fluticasone Propionate [Flonase] 2 spray ASHVIN DAILY 09/07/18 [History] Lidocaine 5% [Lidoderm 5%] 1 patch TOP Q24H 09/07/18 [History] Multivitamin [Multiple Vitamins] 1 tab PO DAILY 09/07/18 [History] Norgestrel-Ethinyl Estradiol [Lsz-[place]ze[place]ii-73 Tablet] 1 tab PO DAILY 09/07/18 [History] Vitamin B Complex 1 tab PO DAILY 09/07/18 [History] raNITIdine HCl [Zantac] 150 mg PO BID 09/07/18 [History] Budesonide [Pulmicort Flexhaler] 1 ampule INH 09/01/19 [History] Famotidine 40 mg PO DAILY PRN #7 tablet 09/01/19 [Rx] Telmisartan [Micardis] 80 mg PO DAILY #30 tablet 09/01/19 [Rx] nitrofurantoin macrocrystaL [Macrodantin] 1 tab PO BID 09/01/19 [History] Past Medical History HEENT History: Reports: Allergic Rhinitis, Impaired Vision Cardiovascular History: Reports: High Cholesterol, Hypertension Respiratory History: Reports: Asthma, Sleep Apnea Other Respiratory History: has cpap Gastrointestinal History: Reports: Cholelithiasis, Chronic Constipation, Diverticulosis, GERD Genitourinary History: Reports: None 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: Musculoskeletal History: Reports: Back Pain, Chronic Neurological History: Reports: Concussion, Head Trauma, Migraines Psychiatric History: Reports: Anxiety, Depression Endocrine/Metabolic History: Reports: Obesity/BMI 30+ Hematologic History: Reports: Blood Transfusion(s) - Infectious Disease History Infectious Disease History: Reports: Chicken Pox - Past Surgical History Head Surgeries/Procedures: Reports: None HEENT Surgical History: Reports: None Cardiovascular Surgical History: Reports: None Respiratory Surgical History: Reports: None GI Surgical History: Reports: Cholecystectomy, Colonoscopy Female Surgical History: Reports: Section Endocrine Surgical History: Reports: None Neurological Surgical History: Reports: None Musculoskeletal Surgical History: Reports: None Social & Family History - Tobacco Use Tobacco Use Status *Q: Never Tobacco User - Caffeine Use Caffeine Use: Reports: Coffee - Recreational Drug Use Recreational Drug Use: No - Living Situation & Occupation Occupation: Employed ED [facility] [employer] GENERAL - Review of Systems Review Of Systems: See Below Constitutional: Reports: Malaise. Denies: Fever, Chills HEENT: Denies: Hearing Loss, Nosebleed, Vision Change Respiratory: Denies: Shortness of Breath Cardiovascular: Reports: Palpitations (Intermittent palpitations) GI/Abdominal: Reports: Nausea. Denies: Constipation, Diarrhea, Vomiting : Reports: No Symptoms Musculoskeletal: Reports: Other (Left hip still is painful with ambulation) Neurological: Reports: Dizziness, Headache, Weakness Psychiatric: Reports: Anxiety ED EXAM, GENERAL - Physical Exam Exam: See Below Exam Limited By: No Limitations General Appearance: Alert, No Apparent Distress Eye Exam: Bilateral Eye: Normal Inspection Ears: Normal TMs Head: Atraumatic Neck: Supple, Non-Tender Respiratory/Chest: Lungs Clear Cardiovascular: Regular Rate, Rhythm. No: Extra Beats GI/Abdominal: Normal Bowel Sounds, Soft, Non-Tender Extremities: Normal Inspection Neurological: Alert, Oriented, No Motor/Sensory Deficits Psychiatric: Flat Affect Skin Exam: Warm, Dry Course - Vital Signs Last Recorded V/S: Last Vital Signs Temp 96.9 F 04/14/21 07:56 Pulse 61 04/14/21 07:56 Resp 18 04/14/21 07:56 BP 134/60 04/14/21 07:56 Pulse Ox 99 04/14/21 07:56 - Orders/Labs/Meds Orders: Active Orders 24 hr Category Date Time Status Isolation [COMM] Stat Oth 04/14/21 08:36 Ordered Labs: Laboratory Tests 04/14/21 04/14/21 04/14/21 Range/Units 08:35 08:45 09:11 WBC 5.0 (4.5-11.0) K/uL RBC 3.76 (3.30-5.50) M/uL Hgb 11.4 L D (12.0-15.0) g/dL Hct 35.1 L (36.0-48.0) % MCV 93 (80-98) fL MCH 30 (27-31) pg MCHC 33 (32-36) % Plt Count 409 H (150-400) K/uL Neut % (Auto) 65.7 (36-66) % Lymph % (Auto) 22.1 L (24-44) % Smyth % (Auto) 5.6 (2-6) % Eos % (Auto) 5.4 H (2-4) % Baso % (Auto) 1.2 H (0-1) % Sodium 139 L (140-148) mmol/L Potassium 3.8 (3.6-5.2) mmol/L Chloride 106 (100-108) mmol/L Carbon Dioxide 27 (21-32) mmol/L Anion Gap 9.8 (5.0-14.0) mmol/L BUN 10 (7-18) mg/dL Creatinine 0.8 (0.6-1.0) mg/dL Est Cr Clr Drug Dosing 78.76 mL/min Estimated GFR (MDRD) > 60 (>60) Glucose 95 (74-106) mg/dL Calcium 8.5 (8.5-10.1) mg/dL Total Bilirubin 0.4 D (0.2-1.0) mg/dL AST 11 L (15-37) U/L ALT 21 (12-78) U/L Alkaline Phosphatase 70 (46-116) U/L Total Protein 5.9 L (6.4-8.2) g/dL Albumin 3.1 L (3.4-5.0) g/dL Globulin 2.8 (2.3-3.5) g/dL Albumin/Globulin Ratio 1.1 L (1.2-2.2) TSH, Ultra Sensitive 1.350 (0.358-3.740) uIU/mL Influenza Type A RNA Negative (NEGATIVE) RSV RNA (INAAT) Negative (NEGATIVE) Influenza Type B RNA Negative (NEGATIVE) SARS-CoV-2 RNA (ANGUS) Negative (NEGATIVE) - Re-Assessments/Exams Free Text/Narrative Re-Assessment/Exam: 04/14/21 08:49 Patient was placed on cardiac monitoring on arrival and shows a normal sinus rhythm, O2 sats are 100% and blood pressure is normal. She is afebrile. CBC, CMP and TSH were obtained. I also did a Covid for plaque study for viruses although she is vaccinated. I do think this patient is actually healthier than she feels. 04/14/21 09:57 Patient remained stable while in the emergency room, all her labs were negative in for Plex viral study was negative as well. She was reassured and has some dizzy medicine at home that she was given in the hospital, she should stay hydrated and she can use those medicines if needed. Departure - Departure Time of Disposition: 10:09 Disposition: Home, Self-Care 01 Clinical Impression: Dizziness Headache Qualifiers: Headache type: unspecified Headache chronicity pattern: acute headache Intractability: not intractable Qualified Code(s): R51.9 - Headache, unspecified - Discharge Information Instructions: Dizziness, [id number] Referrals: Rogelio Martins NP [Primary Care Provider] - Forms: ED Department Discharge Care Plan Goals: Continue any current medications and consider adding the antidizzy medicine as discussed. Concentrate on staying hydrated with fluids and increase activity as tolerated. Return anytime if worsening or concerns. Sepsis Event Note (ED) - Evaluation Sepsis Screening Result: No Definite Risk - Focused Exam Vital Signs: Vital Signs Temp Pulse Resp BP Pulse Ox 04/14/21 07:56 96.9 F 61 18 134/60 99 - My Orders Last 24 Hours: My Active Orders 04/14/21 08:36 Isolation [COMM] Stat - Assessment/Plan Last 24 Hours: My Active Orders 04/14/21 08:36 Isolation [COMM] Stat
[2021-04-14 09:51] LABS: CORONAVIRUS COVID-19 NAA NEGATIVE (NEGATIVE)
== END 2021-04-14 10:08 | disposition home or self-care (01) ==
LOC: JP.ED 07:42
DX: R42 Dizziness and giddiness (principal); R51.9 Headache, unspecified; E78.00 Pure hypercholesterolemia, unspecified; I10 Essential (primary) hypertension; E66.9 Obesity, unspecified; Z68.29 Body mass index [BMI] 29.0-29.9, adult; Z79.82 Long term (current) use of aspirin; Z79.899 Other long term (current) drug therapy; Z20.822 Contact with and (suspected) exposure to COVID-19
CPT/HCPCS: 0241U; 36415; 80053; 84443; 85025; 99284

== ENCOUNTER 2023-09-14 07:12 | Emergency (ER) | payer MEDICARE, MEDICAID ==
[2023-09-14 08:21] LABS: BASOPHILS ABSOLUTE AUTO 0.05 K/uL (0.00-0.10); BASOPHILS PERCENT AUTO 0.6 % (0.1-1.3); EOSINOPHILS ABSOLUTE AUTO 0.25 K/uL (0.00-0.40); EOSINOPHILS PERCENT AUTO 3.1 % (0.0-5.4); HEMATOCRIT 44.6 % (34.3-46.0); HEMOGLOBIN 15.3 g/dL (11.2-15.5); IMMATURE GRAN ABSOLUTE AUTO 0.03 K/uL (0.00-0.23); IMMATURE GRAN PERCENT AUTO 0.4 % (0.0-0.7); LYMPHOCYTES ABSOLUTE AUTO 1.06 K/uL (0.8-3.3); MEAN CORPUSCULAR HEMOGLOBIN 31.2 pg (31.6-35.5); MEAN CORPUSCULAR HGB CONC 34.3 g/dL (31.6-35.5); MONOCYTES PERCENT AUTO 3.7 % (3.3-12.6); NEUTROPHILS ABSOLUTE AUTO 6.45 K/uL (1.0-7.6); NEUTROPHILS PERCENT AUTO 79.2 % (40.0-78.1); PLATELET COUNT,PLT 283 K/uL (130-375); WHITE BLOOD CELL COUNT,WBC 8.1 K/uL (3.2-11.0)
[2023-09-14 08:52] LABS: ALANINE AMINOTRANSFERASE,ALT 42 U/L (12-78); ALBUMIN 3.9 g/dL (3.4-5.0); ALKALINE PHOSPHATASE 65 U/L (46-116); ASPARTATE AMNIOTRANSFERASE,AST 24 U/L (15-37); BILIRUBIN TOTAL 0.8 mg/dL (0.2-1.0); BLOOD UREA NITROGEN,BUN 13 mg/dL (7-18); CARBON DIOXIDE,CO2 26 mmol/L (21-32); CHLORIDE,CL 104 mmol/L (100-108); CREATININE 0.9 mg/dL (0.6-1.0); EST CRCL DRUG DOSING (CG) 68.45 mL/min; ESTIMATED GFR 77 mL/min (>60); GLUCOSE RANDOM 97 mg/dL (74-106); POTASSIUM,K 3.8 mmol/L (3.6-5.2); PROTEIN TOTAL,TP 7.8 g/dL (6.4-8.2); SODIUM,NA 139 mmol/L (140-148); TROPONIN I HIGH SENSITIVITY 5.4 pg/mL (<=60.3)
[2023-09-14 08:55] LABS: ANION GAP 12.8 mmol/L (5.0-14.0)
[2023-09-14] MEDS ORDERED: Sodium Chloride 0.9% 10 ML Syringe FLUSH PRN (09:19)
[2023-09-14] MEDS ORDERED: Sodium Chloride 0.9% 1,000 ML IV SCH (09:30)
[2023-09-14] MEDS: LORazepam 2 MG/ML SDV IVPUSH ONE (09:40)
[2023-09-14] MEDS: Sodium Chloride 0.9% 100 ML IV SCH (09:49)
[2023-09-14] MEDS: Iopamidol 755 Mg/ML 100 ML Bottle IV ONE (09:49)
[2023-09-14 11:32] VITALS: BP 133/85; PULSE 66
== END 2023-09-14 11:32 | disposition home or self-care (01) ==
LOC: JP.ED 07:12
DX: J45.909 Unspecified asthma, uncomplicated (principal); I10 Essential (primary) hypertension; E78.00 Pure hypercholesterolemia, unspecified; E66.9 Obesity, unspecified; Z68.28 Body mass index [BMI] 28.0-28.9, adult; Z79.51 Long term (current) use of inhaled steroids; Z79.899 Other long term (current) drug therapy; Z79.82 Long term (current) use of aspirin; Z90.49 Acquired absence of other specified parts of digestive tract
CPT/HCPCS: 36415; 71046; 71275; 80053; 83880; 84443; 84484; 85025; 85379; 96374; 99285; J2060; J3490; Q9967; 99283

== ENCOUNTER 2024-09-16 07:32 | Emergency (ER) | payer MEDICARE, MEDICAID ==
[2024-09-16 07:46] VITALS: PULSE 71
[2024-09-16 07:51] VITALS: BP 173/94
== END 2024-09-16 08:24 | disposition home or self-care (01) ==
LOC: JP.ED 07:32
DX: M54.50 Low back pain, unspecified (principal); I10 Essential (primary) hypertension; E78.00 Pure hypercholesterolemia, unspecified; E66.9 Obesity, unspecified; Z88.8 Allergy status to other drugs, medicaments and biological substances; Z79.82 Long term (current) use of aspirin; Z79.899 Other long term (current) drug therapy; Z90.49 Acquired absence of other specified parts of digestive tract; Z68.28 Body mass index [BMI] 28.0-28.9, adult
CPT/HCPCS: 99283